=== PATIENT | female | born 1950 | race Caucasian/White ===

== ENCOUNTER 2022-02-05 06:55 | Day surgery (SDC) | payer MEDICARE ==
--- NOTE | 2022-01-29 00:25 | EKG ---
[facility] [address] [facility] [place] [address] Signed No QRS complexes found, no ECG analysis possible No previous ECGs available Confirmed by SRUTHI NEWBERRY MD ([id number]) on 01/29/2022 12:25:22 AM Electronically Signed By: SRUTHI NEWBERRY MD 01/29/22 0025 PATIENT NAME: ANDRÉS GONZALEZ Electrocardiogram DATE OF : 48 PHYSICIAN: SRUTHI NEWBERRY MD REPORT #: [id number] REPORT IS CONFIDENTIAL AND NOT TO BE RELEASED WITHOUT AUTHORIZATION
[~2022-02-05] VITALS: Ht 170.2 cm; Wt 83.2 kg
--- NOTE | ~2022-02-05 | OR ---
[facility] [address] [place], [place] [address] Draft DATE OF OPERATION: 02/05/2022 SURGEON: Mary Ellen Morris MD CONNECTION WORKER: Monroe Gomez M.D. PREOPERATIVE DIAGNOSES: 1. Endometrial fluid, postmenopausal. 2. Cervical stenosis. POSTOPERATIVE DIAGNOSES: 1. Endometrial fluid, postmenopausal. 2. Cervical stenosis. PROCEDURES: Attempted hysteroscopy, attempted dilation of cervix. ANESTHESIA: General, LMA. ESTIMATED BLOOD LOSS: Minimal. DRAINS: None. INDICATIONS AND FINDINGS: The patient is a 71-year-old female, who has had some recent pelvic cramping and during the course of her evaluation, had an ultrasound, which revealed endometrial fluid. She has not had any bleeding. Endometrial biopsy was attempted in the office, but it was unsuccessful secondary to her cervical stenosis. At the time of surgery, the cervix continued to be severely stenotic and could not be dilated. DESCRIPTION OF PROCEDURE: The patient was prepped and draped in the dorsal lithotomy position. A weighted speculum was placed and the cervix was visualized, though it was quite small and almost flushed with the vagina. The anterior lip was grasped with a single-tooth tenaculum. Os Finders were then used in an attempt to dilate the cervix, this was not successful. Because of the difficulty with dilation, Dr. Gomez was asked to assist. The lacrimal PATIENT NAME: ANDRÉS GONZALEZ OPERATIVE REPORT DATE OF : 48 REPORT #: [id number] PHYSICIAN: MARY ELLEN MORRIS MD PCP: MAGUI NELSON [facility] REPORT IS CONFIDENTIAL AND NOT TO BE RELEASED WITHOUT AUTHORIZATION [facility] [address] [place], [place] [address] Draft probes were then used with some success and the cervix was able to be dilated a little bit and at that point, the MyoSure device was placed, though we were not in the uterine cavity thinking that this may allow for direction of the endometrial cavity and allow for evaluation. There was quite a bit of concern at this point that there was a false passage. On placement of the MyoSure device, there was a false passage, but no perforation. However, as the MyoSure device was brought out slightly, it appeared that there was another canal and this was cannulated, but it was clear that we were not in the uterine cavity, but possibly in the cervix, but because of the difficulty it was felt prudent to stop at this point. There was no evidence of perforation. Following this, the procedure was terminated. The tenaculum was removed and there was some tearing of the tenaculum site requiring a suture of 0-chromic in a [id number] manner. The patient did tolerate the procedure well, was taken to the recovery room in good condition. Mary Ellen Morris MD PJW/MODL /[id number] cc: Monroe Gomez MD Copies: MONROE GOMEZ MD ~ PATIENT NAME: ANDRÉS GONZALEZ OPERATIVE REPORT DATE OF : 48 REPORT #: [id number] PHYSICIAN: MARY ELLEN MORRIS MD PCP: MAGUI NELSON PAC REPORT IS CONFIDENTIAL AND NOT TO BE RELEASED WITHOUT AUTHORIZATION
[~2022-02-05 06:55] MED LIST: CENTRUM SILVER1 EACH PO; CITRACAL-VIT D1 EAC1 PO; DILTIAZEM 24HR240 M2 PO; ESTRING1 EACH VG; LISINOPRIL10 MG PO; OMEGA-3 + VITA1 EAC1 PO; SYNTHROID125 MCG PO; TERAZOSIN HCL1 MG PO; VITAMIN D31000 UNI1 PO
--- NOTE | 2022-02-05 08:40 | NUR ---
PT ALERT, ORIENTED AND SUPPORTED BY HER JESSICA. PT SEEMS RELAXED, ALL QUESTIONS ASKED ANSWERED. JESSICA WILL REMAIN FOR DC. PT REQUESTED PRAYER, WILL FOLLOW NEEDED
--- NOTE | 2022-02-05 11:31 | NUR ---
02/05/22 1131 Hedy Mathews 1113 PT ARRIVED IN PACU REMOVING OPA. 1115 RESTING. REU. 1130 AWAKE WITH NO C/O'S.
--- NOTE | 2022-02-05 12:06 | NUR ---
PATIENT BACK IN DAY SURGERY ROOM FROM PACU. DENIES PAIN. PERIPAD IN PLACE WITH SMALL AMOUNT OF RED DRAINAGE. VS CHECKED. IV SITE WNL. SCDs ON. AT BEDSIDE. CALL LIGHT WITHIN REACH. ICE WATER AND CRACKERS PLACED AT BEDSIDE.
[2022-02-05] MEDS ORDERED: IBUPROFEN800 MG PO (12:13)
[2022-02-05] MEDS ORDERED: HYDROCODON-ACE1 EA10 PO (12:14)
--- NOTE | 2022-02-05 13:54 | NUR ---
1250: VS CHECKED. DENIES PAIN. PATIENT C/O FEELING COLD. WARM BLANKETS PLACED ON PATIENT. RICARDO HUGGER PLACED UNDER WARM BLANKETS BUT OVER PATIENT GOWN. IV SITE WNL. PATIENT TOLERATING WATER. TOLERATED CRACKERS. AT BEDSIDE. CALL LIGHT WITHIN REACH. 1320: PATIENT STATES FEELING WARMER. DISCHARGE INSTRUCTIONS GIVEN TO PATIENT AND . PATIENT ASSISTED OOB AND TO BATHROOM. GAIT STEADY. VOID WITHOUT DIFFICULTY. GAIT STEADY BACK TO ROOM. IV DC'D WNL. TIP INTACT. DRSG APPLIED. PATIENT GETTING DRESSED WITH ASSISTANCE FROM . 1340: PATIENT DRESSED AND STATES READY TO GO HOME. PATIENT DISCHARGED TO HOME WITH VIA WHEELCHAIR.
== END 2022-02-05 13:40 | disposition home or self-care (01) ==
LOC: DS 06:55
PROVIDERS: ATTEND Obstetrics & Gynecology
PROC: 0UDB8ZZ Extraction of Endometrium, Via Natural or Artificial Opening Endoscopic (ICD-10-PCS; principal; 2022-02-05 10:00)
DX: N88.2 Stricture and stenosis of cervix uteri (principal); E78.00 Pure hypercholesterolemia, unspecified; I10 Essential (primary) hypertension; E03.9 Hypothyroidism, unspecified; G43.809 Other migraine, not intractable, without status migrainosus; Z88.0 Allergy status to penicillin; Z88.1 Allergy status to other antibiotic agents
CPT/HCPCS: J0690; J1100; J1644; J1885; J2250; J2405; J2704; J2765; J3010; J7121

== ENCOUNTER 2022-02-26 06:00 | Day surgery (SDC) | payer MEDICARE ==
[~2022-02-26] VITALS: Ht 170.2 cm; Wt 82.7 kg
[~2022-02-26 06:00] MED LIST changes: +HYDROCODON-ACE1 EA10 PO; +IBUPROFEN800 MG PO
[2022-02-26] MEDS ORDERED: LISINOPRIL-HCT1 EAC1 PO (06:17)
--- NOTE | 2022-03-03 12:25 | PATH ---
[facility] [address] [place], [place] [address] Signed SPECIMEN(S): A UTERUS, CERVIX, BILAT TUBES AND OVARIES SPECIMEN SOURCE: A. UTERUS, CERVIX, BILAT TUBES AND OVARIES CLINICAL HISTORY: Fluid in endometrial cavity FINAL PATHOLOGIC DIAGNOSIS: Uterus, cervix, bilateral tubes and ovaries: - Weakly proliferative endometrium, negative for hyperplasia or atypia. - Benign endometrial polyp. - Benign calcified myometrial leiomyoma - Benign endocervix and ectocervix. - Benign bilateral ovaries. - Benign bilateral oviducts with incidental benign paratubal serous cysts. JVR:stormy:C2NR MICROSCOPIC EXAMINATION: Histologic sections of all submitted blocks are examined by light microscopy. These findings, together with the gross examination, support the pathologic diagnosis. GROSS DESCRIPTION: The specimen, labeled "MS, A," and designated on the requisition "uterus, cervix, bilateral," is received in formalin and consists of a uterus (Trimmed weight: 39 g, 4.4 cm cornu to cornu, 4.2 cm superior to inferior, 3.0 cm anterior to posterior), attached cervix (2.5 cm in length by 2.4 cm in diameter) with red brown roughened cervical mucosa and patent slit-shaped os (0.7 x 0.3 cm), and attached bilateral fimbriated fallopian tubes (left: 4.8 cm in length and ranging in diameter from 0.3-0.9 cm, right: 4.5 cm in length and ranging in diameter from 0.3-0.9 cm) and ovaries (left: 3.0 x 1.6 x 1.3 cm, right: 2.9 x 1.9 x 1.4 cm). The left fallopian tube and ovary, and anterior cervix are inked blue. The fallopian tubes are baca each with multiple paratubal cysts (0.2-1.0 cm in greatest dimension) and sectioned to reveal a grossly unremarkable cut surface. The fimbriae are entirely submitted. Both ovaries are pink-baca nodular and are sectioned to reveal white-baca firm. The uterine serosa is brown-baca with a posterior transmural disruption (1.5 x PATIENT NAME: ANDRÉS GONZALEZ PATHOLOGY DATE OF : 48 REPORT #: [id number] PHYSICIAN: ROBYN CAMERON PCP: MAGUI NELSON PAC REPORT IS CONFIDENTIAL AND NOT TO BE RELEASED WITHOUT AUTHORIZATION [facility] [address] [place], [place] [address] Signed 1.3 cm) exposing the endometrial cavity. There is a yellow-baca calcified nodule on the posterior aspect of the uterus adjacent to the area of disruption. The nodule measures 2.3 x 2.1 x 1.7 cm and is sectioned to reveal a yellow-baca nodular calcified cut surface. The cervix is opened to reveal a pink-baca unremarkable endocervix (endocervical canal: 2.2 x 0.6 cm). Sectioning of the uterus reveals an endometrial cavity (3.4 cm superior to inferior by 2.0 cm cornu to cornu) with a baca endometrial lining that measures less than 0.1 centimeters in thickness. There is a pink-baca endometrial polyp (1.0 x 0.7 x 0.7 cm) within the left cornual aspect of the endometrial cavity. The endometrial cavity contains a yellow-baca mucoid material. The myometrium is pink-baca and trabeculated with no masses or lesions grossly identified. [employer] sections are submitted as follows: (A1-A2) Fallopian Tubes (A3-A4) Ovaries (A5) Calcified nodule (decalcified in Immunocal) (A6) Anterior and posterior cervix (A7) Endomyometrium (A8) Entire endometrial polyp AC (under the direct supervision of a pathologist) The Gross Description was prepared using a voice recognition system. The report was reviewed for accuracy; however, sound-alike word errors, addition and/or deletions may occur. If there is any question about this report, please contact Client Services. PERFORMING LABORATORY: The technical component was performed by [facility], [address] [place] [id number] (CLIA# [id number]). Professional interpretation was performed by [facility], [address] [place] [id number] (CLIA#: [id number]). Diagnostician: Glenn Augustin MD Pathologist Electronically Signed 03/03/2022 Copies: ~ PATIENT NAME: ANDRÉS GONZALEZ PATHOLOGY DATE OF : 48 REPORT #: [id number] PHYSICIAN: [facility] PCP: MAGUI NELSON PAC REPORT IS CONFIDENTIAL AND NOT TO BE RELEASED WITHOUT AUTHORIZATION
--- NOTE | 2022-03-03 17:40 | OR ---
[facility] [address] [place], [place] [address] Signed DATE OF OPERATION: 02/26/2022 SURGEON: Mary Ellen Morris MD ART HISTORIAN: Monroe Gomez M.D. PREOPERATIVE DIAGNOSES: 1. Endometrial fluid. 2. Cervical stenosis. 3. Inability to assess cavity. POSTOPERATIVE DIAGNOSES: 1. Endometrial fluid. 2. Cervical stenosis. 3. Inability to assess cavity. 4. Bladder tumor. PROCEDURES: 1. Total laparoscopic hysterectomy with bilateral salpingo-oophorectomy. 2. Cystoscopy. 3. Bladder washings. ANESTHESIA: General ET. ESTIMATED BLOOD LOSS: 20 mL. DRAINS: Thomas catheter. INDICATIONS AND FINDINGS: The patient is a 71-year-old female, who was having some pelvic cramping and underwent an ultrasound, which revealed endometrial fluid. Hysteroscopy was attempted, but the cervix could not be dilated and the endometrium could not be assessed. Because of this, it was recommended she undergo hysterectomy. At the time of surgery, the uterus was small with some small fibroids. The tubes and ovaries appeared normal. The cervix was indeed still stenotic. At the conclusion of the procedure, cystoscopy was done and a bladder tumor was noted just next to the left ureteral orifice. No other Electronically Signed By: MARY ELLEN MORRIS MD 03/03/22 1740 PATIENT NAME: ANDRÉS GONZALEZ OPERATIVE REPORT DATE OF : 48 REPORT #: [id number] PHYSICIAN: MARY ELLEN MORRIS MD PCP: MAGUI NELSON PAC REPORT IS CONFIDENTIAL AND NOT TO BE RELEASED WITHOUT AUTHORIZATION [facility] [address] [place], [place] [address] Signed abnormalities of the bladder were identified. DESCRIPTION OF PROCEDURE: The patient was prepped and draped in the dorsal lithotomy position. A weighted speculum was placed and the anterior lip of the cervix was visualized and grasped with single-tooth tenaculum. The endocervical canal was then probed with a sound and it was clear that the cavity was probed at that time. The possible endocervical canal was then dilated and the VCare cannula was placed and the balloon inflated. The tenaculum and weighted speculum removed and the cup was fitted over the cervix and a locking cap fitted into place. Attention was then directed above. The infraumbilical area was injected with 0.5% Marcaine plain. An incision was made with a knife. Each layer was serially elevated and incised until the fascia was opened and identified. Stay sutures of 0 Vicryl were placed. The peritoneum was opened sharply as it could not be opened bluntly. The Dottie cannula was then placed and tied into place. Placement of the scope confirmed proper positioning. On inspection of the pelvis, it appeared that the planned procedure was appropriate. The balloon of the VCare was seen just below the uterine serosa. Secondary ports were then placed laterally. These were placed slightly below the level of the umbilicus. Each of these areas was transilluminated, injected with the Marcaine, incision made with a knife and the trocars placed under direct vision. Left-sided port was a 5 mm port and the right was the Veress needle, followed by the expanding port. The LigaSure [place] device was then used. The patient's left infundibulopelvic ligament was serially coagulated and divided. An Endoloop of 0-PDS was then placed to assure hemostasis. The broad ligament was then serially coagulated and divided until the round ligament was identified. This was coagulated and divided as well. The anterior leaf of the peritoneum could then be incised allowing for creation of a partial bladder flap. The peritoneum was taken down posteriorly as well. The uterine vessels were then coagulated multiple times and divided. Following this, attention was directed to the patient's right side. The patient's right infundibulopelvic ligament was serially coagulated and divided. A 0-PDS Endoloop was placed. A second one was placed as it appeared the first one was not as deep as I had hoped. The second one showed a good occlusion to assure hemostasis. The broad ligament was then serially coagulated and divided until the round ligament was approached and this was serially coagulated and divided as well. The remaining anterior peritoneum was incised allowing for completion of the bladder flap. The peritoneum was taken down posteriorly as well. The uterine vessels were then skeletonized and coagulated multiple times and divided. Further dissection was done both posteriorly and anteriorly until the cup could be felt. Attention was redirected to the patient's left side and further dissection was done. At that point, it was felt the specimen could be . The Sonicision device was then used to separate the specimen from the vaginal cuff. It was begun posteriorly and wrapped around the patient's left anteriorly and again posteriorly and wrapped around the right completing it anteriorly. Following this, the specimen was retrieved from below. The vaginal canal was packed Electronically Signed By: MARY ELLEN MORRIS MD 03/03/22 1740 PATIENT NAME: ANDRÉS GONZALEZ OPERATIVE REPORT DATE OF : 48 REPORT #: [id number] PHYSICIAN: MARY ELLEN MORRIS MD PCP: MAGUI NELSON PAC REPORT IS CONFIDENTIAL AND NOT TO BE RELEASED WITHOUT AUTHORIZATION [facility] [address] [place], [place] [address] Signed with a glove with a wet gauze. The vagina would not accept the lap tape given the vaginal caliber. The pneumoperitoneum was allowed to re-accumulate. The pelvis was copiously irrigated and inspected and good hemostasis was noted. The cuff was then closed with the Endo Stitch. This was begun at the patient's right uterosacral ligament, taking care to incorporate the vaginal mucosa both posteriorly and anteriorly and run to the patient's left uterosacral ligament and back to the center. Following this, the abdominal procedure was complete. The instruments removed from the abdomen after allowing as much CO2 as possible to escape. The fascial incision of the umbilicus was reidentified and closed with a running suture of 0-Vicryl. The stay sutures were tied across as well. The skin incisions were closed with subcuticular sutures of 3-0 Vicryl Rapide. Attention was directed below and the vaginal pack was removed. The Thomas catheter was removed. She had received IV fluorescein. The 30-degree scope was introduced and the bladder filled and visualized. There was a tiny bit of bruising posteriorly. Both ureteral orifices were seen to spill clear urine. There was no fluorescein was seen. However, near the left ureteral orifice there was a frondlike tumor just lateral to the orifice. No other abnormalities were noted on inspection of the remaining bladder. Following this, the scope was removed and the bladder fluid was sent for cytology. Thomas catheter was then replaced. All sponge and needle counts were correct. She tolerated the procedure well and was taken to the recovery room in good condition. Mary Ellen Morris MD PJW/MODL /[id number] cc: MD Malia Barraza MD [facility] Copies: MORNOE GOMEZ MD Electronically Signed By: MARY ELLEN MORRIS MD 03/03/22 1740 PATIENT NAME: ANDRÉS GONZALEZ OPERATIVE REPORT DATE OF : 48 REPORT #: [id number] PHYSICIAN: MARY ELLEN MORRIS MD PCP: MAGUI NELSON PAC REPORT IS CONFIDENTIAL AND NOT TO BE RELEASED WITHOUT AUTHORIZATION [facility] [address] [facility] [place] [place] [address] Signed MALIA HELMS MD ~ Electronically Signed By: MARY ELLEN MORRIS MD 03/03/22 1740 PATIENT NAME: ANDRÉS GONZALEZ OPERATIVE REPORT DATE OF : 48 REPORT #: [id number] PHYSICIAN: MARY ELLEN MORRIS MD PCP: MAGUI NELSON PAC REPORT IS CONFIDENTIAL AND NOT TO BE RELEASED WITHOUT AUTHORIZATION
== END 2022-02-26 16:15 | disposition home or self-care (01) ==
LOC: DS 06:00
PROVIDERS: ATTEND Obstetrics & Gynecology
PROC: 0UT74ZZ Resection of Bilateral Fallopian Tubes, Percutaneous Endoscopic Approach (ICD-10-PCS; 2022-02-26)
PROC: 0UT94ZZ Resection of Uterus, Percutaneous Endoscopic Approach (ICD-10-PCS; principal; 2022-02-26 07:30)
PROC: 0UT24ZZ Resection of Bilateral Ovaries, Percutaneous Endoscopic Approach (ICD-10-PCS; 2022-02-26 07:30)
DX: D25.9 Leiomyoma of uterus, unspecified (principal); N84.0 Polyp of corpus uteri; N83.8 Other noninflammatory disorders of ovary, fallopian tube and broad ligament; N88.2 Stricture and stenosis of cervix uteri; D49.4 Neoplasm of unspecified behavior of bladder; I10 Essential (primary) hypertension; E03.9 Hypothyroidism, unspecified; R73.03 Prediabetes; Z88.0 Allergy status to penicillin; Z88.1 Allergy status to other antibiotic agents
CPT/HCPCS: 00840; 88307; 88311; J0131; J0690; J1100; J1644; J1885; J2001; J2250; J2270; J2405; J2704; J3010; J3475; J7121

== ENCOUNTER 2022-04-21 05:45 | Day surgery (SDC) | payer MEDICARE ==
[~2022-04-21] VITALS: Ht 170.2 cm; Wt 83.2 kg
[~2022-04-21 05:45] MED LIST changes: +LISINOPRIL-HCT1 EAC1 PO
[2022-04-21] MEDS ORDERED: TERAZOSIN HCL1 MG PO (06:05)
--- NOTE | 2022-04-21 08:48 | NUR ---
04/21/22 0848 Jeane Wright 0883- PT ARRIVES TO PACU REACTIVE TO VOICE. PT REPORTS NO PAIN OR NAUSEA. PT IS COLD. WARM AIR APPLIED TO PT. RESP EVEN AND UNLABORED. OXYGEN SAT HIGH 90'S TO 100% ON 8L VIA MASK.
--- NOTE | 2022-04-21 09:28 | NUR ---
0917-PATEINT BACK TO ROOM AND TURNED ON TO HER STOMACH. WILL TURN TO LEFT SIDE AT 0937. 0920-PATIENT IS AWAKE. RESP EVEN AND UNLABORED. DENIES PAIN AND NAUSEA. PATIENT HAS BEEN TAKING SIPS OF WATER. IN ROOM. CALL LIGHT WITHIN REACH.
--- NOTE | 2022-04-21 09:39 | NUR ---
PT RESTING ON ABDOMEN WITH SPOSE AT BEDSIDE. THIS RN AND JOB RN ASSIST PT TO LEFT SIDE FOR LAST 20 MINUTE ROTATION. PT HAS WARM BLANKETS AND RICARDO HUGGER IN PLACE, DENIES ANY NEEDS AT THIS TIME.
--- NOTE | 2022-04-21 10:19 | NUR ---
0957-PATIENT ROLLED TO BACK. 15ML DRAINED FROM BALLOON AND 100ML DRAINED FROM GUERRERO. GUERRERO REMOVED WITHOUT DIFFICULTY AND WNL. 1005-PATIENT SITTING UP EATING APPLESAUSE AND DRINKING WATER. AT BEDSIED. CALL LIGHT WITHIN REACH.
--- NOTE | 2022-04-21 10:36 | NUR ---
PATIENT LAYING IN BED AWAKE. RESP EVEN AND UNLABORED. DENIES PAIN OR NAUSEA. NO DRAINGE AT THIS TIME. TAKING SIPS OF WATER. AT BEDSIDE. WILL CALL WHEN SHE NEEDS TO USE THE RESTROOM.
--- NOTE | 2022-04-21 10:40 | NUR ---
[id number] UP TO RESTROOM WITH 1 RN ASSIST. STATES A LITTLE DIZZY. GAIT STEADY AND TOLERATED WELL. PATIENT VOIDED 100ML. [id number] BACK TO ROOM. DENIES DIZZINESS. PATIENT READY TO GO HOME AND IS GETTING DRESSED.
--- NOTE | 2022-04-21 11:20 | NUR ---
1115-PROVIDED PATIENT AND WITH DISCHARGE INSTRUCTIONS. ALL QUESTIONS ANSWERED. PATIENT DENIES PAIN. PATIENT AMBULATES TO WHEELCHAIR. RIDE PROVIDED OUT TO FRONT OF HOSPITAL WHERE WAS WAITING WITH THE CAR.
--- NOTE | 2022-04-22 08:53 | OR ---
[facility] [address] [place], [place] [address] Signed DATE OF OPERATION: 04/21/2022 SURGEON: Malia Helms MD PREOPERATIVE DIAGNOSIS: 5 mm papillary bladder mass, just superior to the left ureteral orifice. POSTOPERATIVE DIAGNOSES: 5 mm papillary bladder mass, just superior to the left ureteral orifice. Two additional areas of shaggy erythema present superior to the 5 mm papillary bladder lesion. NAMES OF PROCEDURES: 1. Diagnostic cystoscopy with left retrograde pyelogram. 2. Transurethral resection of bladder tumor-small. 3. Intravesical instillation of mitomycin chemotherapy. ANESTHESIA: General. ESTIMATED BLOOD LOSS: Minimal. COMPLICATIONS: None. SPECIMENS: 1. Bladder mass. 2. Abnormal erythematous lesion of bladder wall x2, both sent to pathology for evaluation. DRAINS: An 18-Sudanese two-way Thomas catheter, capped and secured to the patient's abdomen. INDICATION FOR PROCEDURE: Ms. Gonzalez is a very pleasant 71-year-old female who underwent a hysterectomy earlier this year. At the time of her routine diagnostic cystoscopy, Dr. Morris noted a small 5 mm papillary mass located just superior to the left ureteral orifice. I was consulted intraoperatively for evaluation of this mass. However, I was unable to go down to the operating room to visualize the lesion due to a conflicting patient care. Dr. Morris took a picture of the lesion, which clearly revealed a 5 mm or so papillary lesion present Electronically Signed By: MALIA HELMS MD 04/22/22 0853 PATIENT NAME: CARLOSANDRÉS RECORD #: [id number] OPERATIVE REPORT DATE OF : 48 REPORT #: [id number] PHYSICIAN: MALIA HELMS MD PCP: MAGUI NELSON PAC REPORT IS CONFIDENTIAL AND NOT TO BE RELEASED WITHOUT AUTHORIZATION [facility] [address] [place], [place] [address] Signed superior to the left ureteral orifice. The patient was seen in my clinic thereafter and we discussed the details and treatment algorithm of bladder masses. She ultimately agreed to undergo transurethral resection of bladder tumor with instillation of intravesical chemotherapy, mitomycin. OPERATIVE FINDINGS: 1. On cystoscopy, her bilateral ureteral orifices are in their normal anatomic location effluxing clear urine. There was a 5 mm papillary mass present approximately 2 cm superior to her left ureteral orifice. There is another shaggy area of erythema present just superior to the mass itself. There is also 1-2 mm area of erythema present medial and superior to the bladder mass, located mostly on the posterior bladder wall. All three lesions were resected separately. The lesion itself was placed in a separate specimen cup and the two areas of suspicion were placed in another specimen cup and both sent to pathology. 2. Left retrograde pyelogram was performed which revealed a patent left ureter along the entire length of the left ureter. Retrograde pyelogram also revealed a normal-appearing left renal pelvis with no evidence of any calyceal blunting or filling defects. More importantly, I did not appreciate any deformation of the distal left ureter after resection of the bladder mass immediately superior to the ureter. 3. 40 mg in 20 mL of mitomycin was then instilled into the patient's bladder and remained intravesically for a total of 80 minutes. She will be turned to q.20 minutes to allow complete coverage of the mitomycin within the bladder. DESCRIPTION OF PROCEDURE: After informed consent was obtained, the patient was taken back to the operating room. She was transferred from the [facility] to the operating room table, where general anesthesia was induced. She was placed in the dorsal lithotomy position and her genitalia prepped and draped in standard sterile fashion. Using a 30-degree lens on a 22.5-Sudanese introducer, rigid cystoscope was inserted through the urethra into her bladder under direct visualization. Panendoscopic views of the bladder were then obtained using the 30 degree and a 70 degree lens. Please see above findings. I switched back to a 30 degree lens and connected the resectoscope with a 26-Sudanese sheath. I then resected the obvious papillary bladder mass first and placed this in a specimen cup. I gently cauterized the resection bed. Again using a 24-Sudanese loop, I resected two additional areas of suspicion within the left lateral posterior wall of the bladder. These were placed together in one specimen cup and sent to pathology for evaluation. I gently cauterized both areas of resection to achieve hemostasis. This was done without difficulty. Once I was satisfied that hemostasis was complete, I removed the resectoscope and reinserted a 22-Sudanese sheath with a 30-degree lens. I performed a left retrograde pyelogram using a whistle-tip catheter. Please see above findings. I then removed both the whistle-tip catheter and the cystoscope. An 18-Sudanese two-way Thomas catheter was inserted into the patient's bladder and was mainly Electronically Signed By: MALIA HELMS MD 04/22/22 0853 PATIENT NAME: ANDRÉS GONZALEZ OPERATIVE REPORT DATE OF : 48 REPORT #: [id number] PHYSICIAN: MALIA HELMS MD PCP: MAGUI NELSON PAC REPORT IS CONFIDENTIAL AND NOT TO BE RELEASED WITHOUT AUTHORIZATION [address] [address] Signed irrigated to confirm placement. 15 mL of sterile water was instilled into the Thomas balloon. I then instilled the mitomycin chemotherapy into the bladder using the special chemotherapy syringe. All 20 mL of mitomycin was instilled into the bladder and then the catheter was capped and then secured to the patient's abdomen. The procedure was then terminated. The patient tolerated the procedure well. No complication. She will now be transferred to the postanesthesia care unit in stable condition. DISPOSITION: I discussed the details of today's procedure with the patient's and answered all of his questions. She will maintain the mitomycin within her bladder for a total of 80 minutes. Once this is complete, the chemotherapy will be drained from her bladder and the Thomas catheter will be discontinued. She will need to void on her own prior to discharge today. The patient will be given a prescription for Macrobid 100 mg p.o. b.i.d. for a total of 7 days for antibiotic prophylaxis post surgery. The patient's says she has plenty of oxycodone 5 mg at home and so he does not need any additional narcotic today. She will be scheduled to return to clinic in early to mid May for postoperative check. I told her today that I will contact her with her pathology results within the next 5-7 business days. MD AKILAH Clements/EDUARDA /[id number] Copies: ~ Electronically Signed By: MALIA HELMS MD 04/22/22 0853 PATIENT NAME: ANDRÉS GONZALEZ OPERATIVE REPORT DATE OF : 48 REPORT #: [id number] PHYSICIAN: MALIA HELMS MD PCP: MAGUI NELSON PAC REPORT IS CONFIDENTIAL AND NOT TO BE RELEASED WITHOUT AUTHORIZATION
--- NOTE | 2022-04-22 15:08 | PATH ---
[facility] [address] [place], [place] [address] Signed SPECIMEN(S): A BLADDER MASS SPECIMEN(S): B BLADDER WALL ABNORMALITIES SPECIMEN SOURCE: A. BLADDER MASS B. BLADDER WALL ABNORMALITIES CLINICAL HISTORY: Bladder mass FINAL PATHOLOGIC DIAGNOSIS: A. Bladder mass, TUR: - Low-grade papillary urothelial carcinoma. - Negative for stromal invasion. - Negative for significant muscularis propria. B. Bladder wall abnormalities: - Benign urothelium with reactive features and mild focal chronic inflammation. COMMENT: As part of [facility] Quality Improvement Program, this case was reviewed by another member of our pathology staff. Diagnostic notification to the office of Dr. Stevens is initiated by Dr. Augustin and will be recorded separately. JVR:DS:keila:C1NR MICROSCOPIC EXAMINATION: Histologic sections of all submitted blocks are examined by light microscopy. These findings, together with the gross examination, support the pathologic diagnosis. GROSS DESCRIPTION: Two specimens are received in two containers labeled with "MS". A. The specimen, labeled "MS, A," and designated on the requisition "bladder mass," is received in formalin and consists of 2 fragments of pink-baca soft tissue (0.6 and 0.5 cm in greatest dimension). The specimen is submitted entirely in cassette A1. B. The specimen, labeled "MS, B," and designated on the requisition "bladder wall abnormalities," is received in formalin and consists of 2 fragments of pink-baca tissue (0.4 and 0.5 cm in greatest dimension). The specimen is submitted entirely in cassette B1. PATIENT NAME: ANDRÉS GONZALEZ PATHOLOGY DATE OF : 48 REPORT #: [id number] PHYSICIAN: ROBYN CAMERON PCP: MAGUI NELSON PAC REPORT IS CONFIDENTIAL AND NOT TO BE RELEASED WITHOUT AUTHORIZATION [facility] [address] [place] [id number] Signed AC (under the direct supervision of a pathologist) The Gross Description was prepared using a voice recognition system. The report was reviewed for accuracy; however, sound-alike word errors, addition and/or deletions may occur. If there is any question about this report, please contact Client Services. PERFORMING LABORATORY: The technical component was performed by [facility], [address] [place] [address] (CLIA# [id number]). Professional interpretation was performed by [facility], [address] [place] [id number] (CLIA#: [id number]). Diagnostician: Glenn Augusitn MD Pathologist Electronically Signed 04/22/2022 Copies: ~ PATIENT NAME: ANDRÉS GONZALEZ PATHOLOGY DATE OF : 48 REPORT #: [id number] PHYSICIAN: [facility] PCP: MAGUI NELSON PAC REPORT IS CONFIDENTIAL AND NOT TO BE RELEASED WITHOUT AUTHORIZATION
== END 2022-04-21 11:15 | disposition home or self-care (01) ==
LOC: DS 05:45
PROVIDERS: ATTEND Urology
DX: C67.9 Malignant neoplasm of bladder, unspecified (principal); N30.20 Other chronic cystitis without hematuria; N39.41 Urge incontinence; Z88.0 Allergy status to penicillin; Z88.1 Allergy status to other antibiotic agents; Z79.899 Other long term (current) drug therapy
CPT/HCPCS: 74420; 88305; 88307; C1769; J0131; J0690; J1100; J1885; J2001; J2405; J2704; J3010; J7121; J9280; Q9967

== ENCOUNTER 2024-03-07 06:55 | Day surgery (SDC) | payer MEDICARE ==
[2024-02-29 16:31] VITALS: BP 145/79
[~2024-03-07] VITALS: Ht 170.2 cm; Wt 80.9 kg
[~2024-03-07 06:55] MED LIST changes: +FOSAMAX70 MG PO; +LACTATED RINGER'S 1,000 ML IV SCH
[2024-03-07] MEDS ORDERED: LIDOCAINE HCL 1% 5 ML SDV INJ ONE (07:00)
[2024-03-07] MEDS ORDERED: CEFAZOLIN SODIUM 2 GM/20 ML SYR IV SCH (07:00)
[2024-03-07] MEDS ORDERED: IBLOOD GLUCOSE TEST STRIP 1 EA TEST VI PRN (07:00)
[2024-03-07 07:12] VITALS: BP 183/65
[2024-03-07] MEDS ORDERED: ondansetron HCL 4 MG/2 ML VIAL IV PRN (07:30)
[2024-03-07] MEDS ORDERED: OXYCODONE/APAP 5/325 TAB PO PRN (07:30)
[2024-03-07] MEDS ORDERED: MORPHINE SULFATE 4 MG/ML VIAL IV PRN (07:30)
[2024-03-07] MEDS ORDERED: fentaNYL citrate 100 MCG/2 ML VIAL ONE (08:46)
[2024-03-07] MEDS ORDERED: ondansetron HCL 4 MG/2 ML VIAL ONE (08:47)
[2024-03-07] MEDS ORDERED: KETAMINE in NS 50 MG/5 ML SYR ONE (08:47)
[2024-03-07] MEDS ORDERED: propofoL 200 MG/20 ML VIAL ONE (08:47)
[2024-03-07] MEDS ORDERED: DEXAMETHASONE SOD PHOS 4 MG/ML VIAL ONE (08:47)
[2024-03-07] MEDS ORDERED: GLYCOPYRROLATE 1 MG/5 ML MDV ONE (10:04)
[2024-03-07] MEDS ORDERED: LIDOCAINE HCL 2% 5 ML SDV ONE (10:04)
--- NOTE | 2024-03-07 10:26 | NUR ---
03/07/24 1026 Hedy Mathews 1006 PT ARRIVED IN PACU SLEEPY WITH NO C/O'S. 1020 SITTING UP IN BED SIPPING ON WATER.
[2024-03-07 13:05] VITALS: BP 189/65
--- NOTE | 2024-03-07 15:49 | NUR ---
LE 1105 PATIENT INTO ROOM 3. PATIENT UNABLE TO VOID. PATIENT DISCHARGE INSTRUCTIONS COMPLETED WITH BETTY BATRES. PATIENT ALERT AND ORIENTED. BREATHING EQUAL AND UNLABORED. OXYGEN SATURATIONS ABOVE 90% ON ROOM AIR. PATIENT HAS NO DRAINAGE. CALL LIGHT WITHIN REACH NO FUTHER NEEDS. NO QUESTIONS AT THIS TIME. LE 1205 PATIENT STILL UNABLE TO VOID. PATIENT STILL GETTING FLUIDS AND IVF INFUSING. LE 1245 DR. MEJIA NOTIFIED THAT PATIENT UNABLE TO VOID. BLADDER SCANNED 605 MLS. LE 1300 NEW ORDER GUERRERO CATH PLACED. PATIENT WILL GO HOME WITH CATH. LE 1315 PATIENT EDUCATED ON CATH. PATIENT HAS NO QUESTIONS AT THIS TIME. PATIENT WHEELED OUT OF FACILITY TO PRIVATE AUTO. IV D/C'D WNL. PATIENT CATH DRAINED FOR 585 MLS OR CLEAR AND YELLOW URINE.
== END 2024-03-07 13:15 | disposition home or self-care (01) ==
LOC: DS 06:55 → OPS 06:55 → DS 08:20 → OPS 08:20
PROVIDERS: ATTEND Urology
PROC: 0TVD8ZZ Restriction of Urethra, Via Natural or Artificial Opening Endoscopic (ICD-10-PCS; principal; 2024-03-07 08:20)
DX: N39.3 Stress incontinence (female) (male) (principal); N36.42 Intrinsic sphincter deficiency (ISD); C67.0 Malignant neoplasm of trigone of bladder; N30.90 Cystitis, unspecified without hematuria; Z88.0 Allergy status to penicillin; Z88.1 Allergy status to other antibiotic agents
CPT/HCPCS: 00910; J0690; J1100; J2001; J2405; J2704; J3010; J3490; J7121; L8606

== ENCOUNTER 2024-07-19 11:51 | Emergency (ER) | payer BC ==
[~2024-07-19] VITALS: Ht 170.2 cm; Wt 83.0 kg
[~2024-07-19 11:51] MED LIST changes: -LACTATED RINGER'S 1,000 ML IV SCH
[2024-07-19] MEDS ORDERED: dilTIAZem HCL 25 MG/5 ML VIAL IV ONE (12:15)
[2024-07-19 12:17] LABS: BASOPHILS 0.2 % (0-2); EOSINOPHILS 0.5 % (0-6); HEMATOCRIT 43.1 % (35.0-50.0); HEMOGLOBIN 14.6 g/dL (12.0-18.0); LYMPHOCYTES 11.2 % (24-44); MCH 32.4 (27-36); MCHC 33.9 g/dl (30-36); MCV 95.7 fl (81-99); MONOCYTES 7.3 % (0-12); NEUTROPHILS 80.8 % (39-80); PLATELET COUNT 266 K/uL (140-440); RDW 14.4 (10.5-15.0)
[2024-07-19 12:29] LABS: PARTIAL THROMBOPLASTIN TIME 26.6 Sec (22.9-41.3)
[2024-07-19] MEDS ORDERED: NEURONTIN100 MG PO (12:29)
[2024-07-19] MEDS ORDERED: ELIQUIS2.5 MG PO (12:29)
[2024-07-19 12:30] LABS: INR 1.04 (0.80-1.30); PROTIME 13.6 Sec (11.2-14.2)
[2024-07-19 12:40] LABS: ALBUMIN 3.4 g/dL (3.4-5.0); ALBUMIN/GLOBULIN RATIO 1.06 (1.1-2.4); ANION GAP 10.2 (7-21); BILIRUBIN, TOTAL 1.1 ng/dL (0.2-1.0); BUN/CREATININE RATIO 28.39 (6.0-28.6); CALCIUM 8.9 mg/dL (8.5-10.1); CREATININE, SERUM 0.81 mg/dL (0.55-1.02); MAGNESIUM 1.6 mg/dL (1.8-2.4); POTASSIUM 3.2 mmol/L (3.5-5.1); PROTEIN, TOTAL 6.6 g/dL (6.4-8.2)
[2024-07-19 14:23] VITALS: BP 122/70
--- NOTE | 2024-07-20 20:34 | EKG ---
[facility] [address] [facility] [place] [address] Signed Atrial fibrillation with rapid ventricular response Abnormal ECG When compared with ECG of 29-FEB-2024 16:48, Atrial fibrillation has replaced Sinus rhythm Vent. rate has increased BY 38 BPM Confirmed by Rayo Kramer DO ([id number]) on 07/20/2024 8:34:08 PM Electronically Signed By: RAYO KRAMER DO 07/20/242033 PATIENT NAME: CARLOSANDRÉS CESAR Electrocardiogram DATE OF : 48 PHYSICIAN: RAYO KRAMER DO REPORT #: [id number] REPORT IS CONFIDENTIAL AND NOT TO BE RELEASED WITHOUT AUTHORIZATION
== END 2024-07-19 14:23 | disposition home or self-care (01) ==
LOC: ED 11:51
PROVIDERS: Emergency Medicine
DX: I48.91 Unspecified atrial fibrillation (principal); I10 Essential (primary) hypertension; Z88.1 Allergy status to other antibiotic agents; Z88.0 Allergy status to penicillin; Z79.899 Other long term (current) drug therapy; Z79.890 Hormone replacement therapy; Z79.01 Long term (current) use of anticoagulants
CPT/HCPCS: 36415; 71045; 80053; 83735; 83880; 84484; 85025; 85610; 85730; 93005; 93010; 96374; 99285-25

== ENCOUNTER 2024-12-09 18:50 | Emergency (ER) | payer BC ==
[~2024-12-09] VITALS: Ht 170.2 cm; Wt 80.0 kg
[~2024-12-09 18:50] MED LIST changes: +ELIQUIS5 MG PO; +NEURONTIN100 MG PO
[2024-12-09] MEDS ORDERED: ALENDRONATE SOD70 MG PO (20:18)
[2024-12-09] MEDS ORDERED: METOPROLOL TART25 MG PO (20:18)
[2024-12-09 20:23] LABS: BASOPHILS 0.3 % (0.1-1.2); EOSINOPHILS 0.3 % (0.7-5.8); HEMATOCRIT 38.6 % (34.1-44.9); HEMOGLOBIN 12.8 g/dL (11.2-15.7); LYMPHOCYTES 11.5 % (19.3-51.7); MCH 29.2 PG (25.6-32.2); MCHC 33.2 g/dL (32.2-35.5); MCV 88.1 fL (79.4-94.8); MONOCYTES 5.5 % (4.7-12.5); NEUTROPHILS 82.1 % (34.0-71.1); PLATELET COUNT 313 K/uL (182-369); RBC 4.38 M/uL (3.93-5.22)
[2024-12-09 20:32] LABS: ALBUMIN 3.8 g/dL (3.4-5.0); ALBUMIN/GLOBULIN RATIO 1.15 (1.1-2.4); ANION GAP 12.4 (7-21); BILIRUBIN, TOTAL 0.5 mg/dL (0.2-1.0); BUN/CREATININE RATIO 20.86 (6.0-28.6); CALCIUM 9.1 mg/dL (8.5-10.1); CREATININE, SERUM 1.15 mg/dL (0.55-1.02); POTASSIUM 3.4 mmol/L (3.5-5.1); PROTEIN, TOTAL 7.1 g/dL (6.4-8.2)
[2024-12-09] MEDS ORDERED: SODIUM CHLORIDE 0.9% 1,000 ML IV ONE (21:30)
[2024-12-09 22:56] VITALS: BP 166/62
--- NOTE | 2024-12-11 21:26 | EKG ---
[facility] [address] [place] [address] Signed Atrial fibrillation Minimal voltage criteria for LVH, may be normal variant ( R in aVL ) Abnormal ECG When compared with ECG of 19-JUL-2024 12:00, Vent. rate has decreased BY 39 BPM Confirmed by Brandon Dumont MD () on 12/11/2024 9:25:54 PM Electronically Signed By: BRANDON DUMONT MD 12/11/242125 PATIENT NAME: ANDRÉS GONZALEZ Electrocardiogram DATE OF : 48 PHYSICIAN: BRANDON DUMONT MD REPORT #: [id number] REPORT IS CONFIDENTIAL AND NOT TO BE RELEASED WITHOUT AUTHORIZATION
== END 2024-12-09 22:56 | disposition home or self-care (01) ==
LOC: ED 18:50
PROVIDERS: Family Medicine
DX: I48.91 Unspecified atrial fibrillation (principal); E86.0 Dehydration; I10 Essential (primary) hypertension; Z88.1 Allergy status to other antibiotic agents; Z88.0 Allergy status to penicillin; Z79.01 Long term (current) use of anticoagulants; Z79.899 Other long term (current) drug therapy
CPT/HCPCS: 36415; 80053; 83735; 85025; 93005; 93010; 96360; 99284-25; J7030